=== PATIENT | female | born 1980 | race Two or more races ===

== ENCOUNTER → 2024-08-05 | Outpatient (CLI) | payer MEDICAID, SELFPAY ==
--- NOTE | 2024-08-05 11:10 | XR_ITS ---
Examination: Abdomen AP single view Technique: AP portable supine abdomen, single view Exam date and time: August 05, 2024 1135 hours INDICATIONS: Abdominal pain beginning one month ago FINDINGS: Large amounts of stool throughout the colon No renal or ureteral calculi Surgical clips upper abdomen on the right IMPRESSION: No renal or ureteral calculi
== END | disposition home or self-care (01) ==
PROVIDERS: PCP Physician Assistant; Referring Provider Surgery; Visit Provider Surgery
DX: N39.0 Urinary tract infection, site not specified (principal)
CPT/HCPCS: 74018

== ENCOUNTER → 2024-09-15 | Outpatient (CLI) | payer MEDICAID, SELFPAY ==
--- NOTE | 2024-09-15 07:15 | XR_ITS ---
Examination: Retroperitoneal ultrasound, complete Technique: Multiple high resolution grayscale images of the retroperitoneum obtained, including kidneys and bladder. Exam date and time:September 15, 2024 0751 hours INDICATIONS: Abdominal pain urinary tract infections beginning one month ago FINDINGS: Right kidney 10.4 x 6.9 x 6.7 cm renal cortex 1.5 cm Left kidney 10.5 x 6.0 x 5.1 cm cortex 2.1 cm Probable cyst in the lower pole left kidney 27 mm Mild bilateral renal parenchymal scar formation No bladder mass or bladder calculi Bladder prevoid volume 46 cc IMPRESSION: Mild bilateral renal parenchymal scar formation Recommend CT scan abdomen pelvis post intravenous contrast follow-up to differentiate lower pole left renal cyst versus dilated lower pole left renal calyces
--- NOTE | 2024-09-15 07:45 | XR_ITS ---
Examination: Breast ultrasound, unilateral, left complete Date and time of exam: September 15, 2024 0805 hours INDICATIONS: Mammogram January 27, 2024 10 mm focal asymmetry upper outer left breast Technique: Real-time pretty scale ultrasonographic imaging performed left breast including all 4 quadrants as well as nipple retroareolar and axillary region. Findings: 1:00 cyst 5 x 5 mm 9:00 cyst 4 x 3 mm No solid nodules Multiple enlarged left axillary lymph nodes IMPRESSION: BI-RADS Category 3: Probably benign findings Recommend 1 additional 6 month left breast sonogram follow-up to document stability of multiple enlarged left axillary lymph nodes
== END | disposition home or self-care (01) ==
LOC: CDIM 07:21
PROVIDERS: PCP Physician Assistant; Referring Provider Surgery; Visit Provider Surgery
DX: R91.8 Other nonspecific abnormal finding of lung field (principal); R59.0 Localized enlarged lymph nodes
CPT/HCPCS: 76641; 76770

== ENCOUNTER → 2024-09-17 | Outpatient (CLI) | payer MEDICAID, SELFPAY ==
--- NOTE | 2024-09-17 14:15 | XR_ITS ---
Examination: Diagnostic digital mammography, unilateral, left Computer aided detection 3-D breast Tomosynthesis, unilateral Date and time of exam: September 17, 2024 1456 hours INDICATIONS: Mammogram January 27, 2024 10 mm focal asymmetry upper outer left breast Technique: Nonmagnified MLO, CC views of the left breast have been obtained, reconstructed from 3-D Tomosynthesis images. R2 computer aided detection program utilized for evaluation of suspicious masses and/or abnormal calcifications. 3-D Tomosynthesis images obtained. Findings: The breast is heterogeneously dense, which may obscure small masses No suspicious nodule depicted Impression: BI-RADS category 2: Benign findings Recommend 6 month bilateral mammography follow-up
== END | disposition home or self-care (01) ==
LOC: CDIM 14:45
PROVIDERS: Referring Provider Physician Assistant; Visit Provider Physician Assistant
DX: R92.322 Mammographic fibroglandular density, left breast (principal)
CPT/HCPCS: 77061; 77065; G0279

== ENCOUNTER 2024-10-13 08:38 | Emergency (ER) | payer MEDICAID, SELFPAY ==
--- NOTE | 2024-10-13 08:52 | XR_ITS ---
Examination: CT abdomen and pelvis without contrast. Coronal 3-D reconstructions. Sagittal 2-D reconstructions. Date and time of exam:October 13, 2024 1021 hours INDICATIONS: Bilateral flank pain beginning 4 days ago CTDI: vol (mGy): 10.3 DLP: (mGycm): 551 Technique: Axial images of the abdomen have been obtained, 3 mm slice thickness Intravenous contrast material has not been administered. Low dose protocols were performed. One or more of the following dose reduction techniques were used; automated exposure control, adjustment of the mA and/or KV according to patient size, use of iterative reconstruction technique. Findings: No focal liver or splenic lesions Absent gallbladder No peripancreatic edema No adrenal mass 27 mm left renal cyst 2 mm calculus lower pole left kidney coronal image 99 No hydronephrosis or ureteral calculi Aorta normal size No pericecal inflammatory change No bowel obstruction No bladder mass or bladder calculi The osseous structures are intact IMPRESSION: 2 mm nonobstructing lower pole left renal calculus
--- NOTE | 2024-10-13 08:53 | PD.EDBACK ---
ED Back Injury Pain RME/HPI General Chief Complaint: Back Pain/Injury Stated Complaint: BILATERAL LOWER BACK/KIDNEY AREA X 4 DAYS Time Seen by Provider: 10/13/24 08:41 Source: patient Arrival date/time: 10/13/24 08:38 44-year-old female with no known medical history presents to the emergency room with a chief complaint of bilateral flank pain x 4 days. Patient is also complaining of burning with urination. Mode of arrival: ambulatory Limitations: no limitations Related Data Home Medications ?Medication ?Instructions ?Recorded ?Confirmed omeprazole 40 mg capsule,delayed 40 mg PO QDAY 05/14/21 05/20/22 release Previous Rx's ?Medication ?Instructions ?Recorded meloxicam 7.5 mg tablet 7.5 mg PO QDAY #10 tabs 10/22/21 hydrocortisone acetate 25 mg 25 mg SC BID #12 ea 11/09/21 rectal suppository (Hemmorex-HC) metoclopramide HCl 10 mg tablet 10 mg PO Q6H PRN nausea and 11/09/21 (Reglan) vomiting #20 tabs meclizine 25 mg tablet 25 mg PO BID PRN dizziness #20 tabs 12/05/22 rizatriptan 10 mg disintegrating 10 mg PO Q2H PRN migraine headache 02/22/23 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) #20 tabs famotidine 20 mg tablet 20 mg PO QDAY #30 tabs 07/06/23 cyclobenzaprine 10 mg tablet 10 mg PO TID PRN muscle spasm #30 05/15/24 tabs ibuprofen 800 mg tablet 800 mg PO TID PRN pain #30 tabs 05/15/24 meloxicam 15 mg tablet 15 mg PO QDAY #14 tabs 10/13/24 Allergies Allergy/AdvReac Type Severity Reaction Status Date / Time No Known Allergies Allergy Verified 10/13/24 08:40 Review of Systems Review of Systems Systems Reviewed: All systems reviewed, normal except as documented Constitutional Constitutional: Reports system reviewed and no additional complaints, except as documented, Denies fatigue, Denies fever(s), Denies headache(s) and Denies weakness Eyes Eyes: Reports system reviewed and no additional complaints, except as documented, Denies blurry vision and Denies change in vision ENT Ears, Nose, Mouth, and Throat: Reports system reviewed and no additional complaints, except as documented, Denies otalgia, Denies headache(s), Denies nasal congestion, Denies throat swelling and Denies vertigo Cardiovascular Cardiovascular: Reports system reviewed and no additional complaints, except as documented, Denies chest pain, Denies dyspnea and Denies dyspnea on exertion Respiratory Respiratory: Reports system reviewed and no additional complaints, except as documented, Denies chest congestion, Denies cough, Denies dyspnea, Denies dyspnea on exertion and Denies wheezing Gastrointestinal Gastrointestinal: Reports system reviewed and no additional complaints, except as documented, Denies abdominal pain, Denies cramping, Denies nausea and Denies vomiting Genitourinary Genitourinary: Reports system reviewed and no additional complaints, except as documented Musculoskeletal Musculoskeletal: Reports system reviewed and no additional complaints, except as documented and Reports back pain Integumentary/Breasts Skin/Breast: Reports system reviewed and no additional complaints, except as documented and Denies wounds Neurologic Neurologic: Reports system reviewed and no additional complaints, except as documented, Denies confusion, Denies headache(s), Denies lack of coordination, Denies vertigo and Denies weakness Psychiatric Psychiatric: Reports system reviewed and no additional complaints, except as documented, Denies anxiety, Denies confusion, Denies depression, Denies paranoia, Denies suicidal ideation and Denies tactile hallucinations Endocrine Endocrine: Reports system reviewed and no additional complaints, except as documented and Denies fatigue Hematologic/Lymphatic Hematologic/Lymphatic: Reports system reviewed and no additional complaints, except as documented and Denies lymphadenopathy Allergic/Immunologic Allergic/Immunologic: Reports system reviewed and no additional complaints, except as documented, Denies throat swelling, Denies urticaria and Denies wheezing ED Exam General Limitations: Present no limitations General appearance: Present alert and in no apparent distress Head Head exam: Present atraumatic Eye Eye exam: Present normal appearance, PERRL and EOMI ENT ENT exam: Present normal exam, normal oropharynx and mucous membranes moist Neck Neck exam: Present normal inspection, full ROM and trachea midline Chest Chest inspection: Present normal inspection and symmetric chest wall rise Respiratory Respiratory exam: Present normal lung sounds bilaterally Cardiovascular Cardiovascular exam: Present regular rate, normal rhythm and normal heart sounds Abdominal Exam Abdominal exam: Present soft, tenderness and normal bowel sounds Abdominal tenderness: Present RLQ, LLQ and mild Extremities Exam Extremities exam: Present normal inspection and full ROM Back Exam Back exam: Present normal inspection, full ROM, CVA tenderness (R) and CVA tenderness (L) Neurological Exam Neurological exam: Present alert, oriented X3 and CN II-XII intact Psychiatric Psychiatric exam: Present normal affect and normal mood Skin Skin exam: Present warm, dry, intact and normal color Course Quality Measures none Orders Category Date Time Status CT abdomen pelvis wo con Stat Exams 10/13/24 08:52 Completed CBC Stat Lab 10/13/24 09:40 Completed CMP [Comprehensive Metabolic Panel] Stat Lab 10/13/24 09:40 Completed HCG Qualitative,Urine Stat Lab 10/13/24 09:16 Completed Lipase Stat Lab 10/13/24 09:40 Completed UA [Urinalysis] Stat Lab 10/13/24 09:16 Completed Urine Culture Stat Lab 10/13/24 09:16 Received Ketorolac Inj [Toradol Inj] Med 10/13/24 10:09 Discontinued 30 mg IM X1 ONE Vital Signs Vital signs: Vital Signs Temperature 98.4 F 10/13/24 08:57 Pulse Rate 77 10/13/24 08:57 Respiratory Rate 18 10/13/24 08:57 Blood Pressure 127/66 10/13/24 08:57 Pulse Oximetry (%) 99 10/13/24 08:57 Oxygen Delivery Method Room Air 10/13/24 08:57 O2 saturation 99% within normal limits Back Pain / Injury MDM Narrative MDM Narrative:: 44-year-old female with no known medical history presents to the emergency room with a chief complaint of bilateral flank pain x 4 days. Patient is also complaining of burning with urination. Patient is hemodynamically stable and in no apparent distress. Patient is afebrile. Physical examination shows bilateral CVA tenderness. Patient denies any dysuria or lower abdominal pain. Abdomen is soft and nontender and not distended. CT of the abdomen and pelvis was completed and found a 2 mm nonobstructing left renal calculus. Patient also has a 27 mm left renal cyst. Patient was educated to follow-up with primary care provider about her cyst and return to the emergency room for any evidence of worsening signs or symptoms. Patient data External records reviewed:: [facility] previous records Clinical information provided by:: patient Social determinants that could affect healthcare access:: none Patient has the following chronic illnesses:: No chronic illness How is presenting disease/condition affected by chronic disease/condition?: no chronic disease Evaluation data The following diagnostics were reviewed and interpreted by me:: lab results and radiology exam(s) Lab and/or radiology exams considered but not ordered:: Labs and radiology exams considered and ordered Interpretation Summary: CT abdomen and pelvis-Findings: No focal liver or splenic lesions Absent gallbladder No peripancreatic edema No adrenal mass 27 mm left renal cyst 2 mm calculus lower pole left kidney coronal image 99 No hydronephrosis or ureteral calculi Aorta normal size No pericecal inflammatory change No bowel obstruction No bladder mass or bladder calculi The osseous structures are intact IMPRESSION: 2 mm nonobstructing lower pole left renal calculus Medications / Prescriptions Medications or Prescriptions considered but not ordered:: Medication given Medication administrations:: Medication Administration History Discontinued Medications Ketorolac Tromethamine (Ketorolac Inj 60 Mg/2 Ml Vial) 30 mg IM X1 ONE Stop: 10/13/24 10:10 Last Admin: 10/13/24 10:34 Dose: 30 mg Documented By: OA Medication given Consultations Consultation(s) initiated? (list below): No Diagnosis Differential diagnosis back pain/injury: lumbar radiculopathy, sciatica, strain of lumbar region, renal colic and thoracic back pain Most likely diagnosis given after review of the tests above:: Renal colic's Admission Indicated Admission indicated?: not indicated Admission Request Was there a request for admission?: No Disposition Plan Disposition Plan: Discharge Discharge Attestation Discharge Attestation: The patient and all family members were given an opportunity to ask questions and understood the discharge instructions. Discharge instructions specifically effects, indications for sooner follow up or return to the emergency department, and the expected course of current diagnosis. Patient condition: Stable Discharge Plan Plan Patient Disposition: HOME (Self Care) Disposition Comment: Stable Prescriptions/Referrals Prescriptions/Med Rec: New meloxicam 15 mg tablet 15 mg PO QDAY Qty: 14 0RF No Action omeprazole 40 mg capsule,delayed release(DR/EC) 40 mg PO QDAY metoclopramide HCl [Reglan] 10 mg tablet 10 mg PO Q6H PRN (Reason: nausea and vomiting) Qty: 20 0RF hydrocortisone acetate [Hemmorex-HC] 25 mg suppository 25 mg SC BID Qty: 12 0RF meloxicam 7.5 mg tablet 7.5 mg PO QDAY Qty: 10 0RF meclizine 25 mg tablet 25 mg PO BID PRN (Reason: dizziness) Qty: 20 0RF rizatriptan [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] 10 mg tablet,disintegrating 10 mg PO Q2H PRN (Reason: migraine headache) Qty: 20 0RF Rx Instructions: do not exceed 3 doses per 24 hrs famotidine 20 mg tablet 20 mg PO QDAY Qty: 30 0RF ibuprofen 800 mg tablet 800 mg PO TID PRN (Reason: pain) Qty: 30 0RF cyclobenzaprine 10 mg tablet 10 mg PO TID PRN (Reason: muscle spasm) Qty: 30 0RF Referrals: Sea Morris PA-C [Primary Care Provider] - In 1 week Problem List Clinical Impression: Kidney stone, Renal cyst, left Patient/Caregiver Discharge Instructions Education Materials: ED Kidney Stone w/ Colic Additional Instructions: Por favor, consulte con [facility] en las pr?ximas 24 a 48 horas. Se realiz? albaro tomograf?a computarizada de abdomen y pelvis y se encontr? un c?lculo de 2 mm que no obstru?a el paso. Tambi?n hay un quiste renal de 27 mm en el ri??n fatimah. Por favor, consulte con [facility] y regrese a la jose de emergencias si hay evidencia de empeoramiento de los signos o s?ntomas. Print Language: Irish Stand Alone Forms: Roselyn Award Info., Patient Portal Info Letter PA/CARE INFORMATION ASSOCIATE Supervising Physician PA/CARE INFORMATION ASSOCIATE Supervising Physician: Dr. Resendez
[2024-10-13 08:57] VITALS: BP 127/66; PULSE 77; RESP 18; TEMP 36.9; O2SAT 99; BMI 31.9
[2024-10-13 09:23] LABS: Collection Type, Urine Clean Catch
[2024-10-13 09:36] LABS: HCG Qualitative,Urine Negative
[2024-10-13 09:56] LABS: Basophils % (Auto) 0 % (0-2.5); Eosinophils # (Auto) 0.1 Thou/mm3 (0.0-0.5); Eosinophils % (Auto) 2 % (0-10); Hematocrit 37.9 % (36.0-46.0); Hemoglobin 12.7 g/dL (12.0-16.0); Immature Granulocytes % (Auto) 0 % (0-0); Immature Granulocytes Auto 0.02 Thou/mm3 (0.00-0.00); Lymphocytes # (Auto) 1.8 Thou/mm3 (1.0-4.8); Lymphocytes % (Auto) 25 % (10-50); Mean Corpuscular HGB Conc 33.5 g/dl (31.0-37.0); Mean Corpuscular Hemoglobin 29.3 pg (25.0-35.0); Mean Corpuscular Volume 88 fL (80-100); Monocytes # (Auto) 0.4 Thou/mm3 (0.0-0.8); Monocytes % (Auto) 6 % (0-12); Neutrophils # (Auto) 4.8 Thou/mm3 (1.8-7.7); Neutrophils % (Auto) 66 % (37-80); Nucleated Red Blood Cell % 0 /100 WBC (0); Platelet Count 272 Thou/mm3 (140-440); RDW Standard Deviation 43.3 fL (36.4-46.3); Red Blood Count 4.33 Miln/mm3 (4.00-5.20); White Blood Count 7.3 Thou/mm3 (3.6-11.0)
[2024-10-13 09:57] LABS: Bacteria,Urine 2+; Bilirubin,Urine Negative (Negative); Blood,Urine 2+ (Negative); Clarity,Urine Clear (Clear/Hazy); Color,Urine Lt-Yellow (Lt Yel-Yel); Glucose, Urine Negative (Negative); Hyaline Casts,Urine < 1 /hpf (0-1); Ketones,Urine Negative (Negative); Leukocyte Esterase,Urine Negative (Negative); Nitrite,Urine Negative (Negative); Protein,Urine Negative (Neg - Trace); RBC,Urine 14 /hpf (0-3); Specific Gravity,Urine 1.019 (1.001-1.035); Squamous Epithelial Cell,Urine 7 /hpf (0-5); Urobilinogen,Urine Negative mg/dL (0.0-1.0); WBC,Urine 1 /hpf (0-5)
[2024-10-13 10:09] LABS: Alanine Aminotransferase 12 U/L (10-49); Albumin/Globulin Ratio 1.5 (1.2-2.2); Alkaline Phosphatase 63 U/L (46-116); Anion Gap 6 (7-16); Aspartate Amino Transferase 14 U/L (0-34); BUN/Creatinine Ratio 13 Ratio (12-20); Bilirubin,Total 0.3 mg/dL (0.3-1.2); Blood Urea Nitrogen 9 mg/dL (9-23); Calcium 8.9 mg/dL (8.3-10.6); Calcium (Corrected) 8.9 mg/dL (8.5-10.1); Carbon Dioxide 24.9 mMol/L (20.0-31.0); Chloride 108 mMol/L (98-107); Creatinine (Component) 0.7 mg/dL (0.6-1.3); Estimated Creatinine Clearance 110.1 mL/min (>60); Globulin 2.6 gm/dL (2.3-3.5); Glucose 92 mg/dL (74-106); Lipase 34 U/L (12-53); Osmolality,Calculated 276 (275-295); Potassium 4.3 mMol/L (3.4-5.1); Sodium 139 mMol/L (136-145); Total Protein 6.6 gm/dL (5.7-8.2); eGFR > 60 See Note
[2024-10-13] MEDS: KETOROLAC INJ 60 MG/2 ML VIAL 30 MG IM (10:34)
== END 2024-10-13 11:58 | disposition home or self-care (01) ==
PROVIDERS: Nurse Practitioner Family; Emergency Provider Emergency Medicine; PCP Physician Assistant
DX: N20.0 Calculus of kidney (principal); N28.1 Cyst of kidney, acquired
CPT/HCPCS: 36415; 74176; 80053; 81001; 81025; 83690; 85025; 87086; 96372; 99284; J1885

== ENCOUNTER 2024-11-18 19:00 | Emergency (ER) | payer MEDICAID, SELFPAY ==
--- NOTE | 2024-11-18 19:10 | EKG_ITS ---
[facility] Test Date: 2024-11-18 Pat Name: JEREMY JOHNSON Department: Room: - Gender: Female [employer] Technician: : 1980 Requested By: Joe López Order Number: [id number] Reading MD: Joe López Measurements Intervals [place] Rate: 77 P: 61 MA: 143 QRS: 28 QRSD: 79 T: 15 QT: 395 QTc: 449 Interpretive Statements SINUS RHYTHM MODERATE T-WAVE ABNORMALITY, CONSIDER ANTERIOR ISCHEMIA [-0.1+ mV T-WAVE IN V3/V4] Compared to ECG 07/06/2023 08:09:38 T-wave abnormality now present Possible ischemia now present /store/S0/[id number].pdf
[2024-11-18 19:47] VITALS: BP 138/86; PULSE 73; RESP 16; TEMP 36.6; O2SAT 99; BMI 30.9
--- NOTE | 2024-11-18 20:06 | EDNOTE_ITS ---
ED Anxiety RME/HPI General Chief Complaint: Chest Pain Stated Complaint: LEFT CHEST PAIN RADIATING TO LEFT HAND; DIZZY Time Seen by Provider: 11/18/24 20:03 Arrival date/time: 11/18/24 19:00 44F with history of anxiety presents to ED with 2 days of intermittent L-sided CP that radiates down arm, generalized numbness, and some dizziness. Patient denies SI/HI. Limitations: no limitations Related Data Home Medications ?Medication ?Instructions ?Recorded ?Confirmed omeprazole 40 mg capsule,delayed 40 mg PO QDAY 1 05/20/22 release Previous Rx's ?Medication ?Instructions ?Recorded meloxicam 7.5 mg tablet 7.5 mg PO QDAY #10 tabs 10/09 11/30 hydrocortisone acetate 25 mg 25 mg [place] BID #12 ea 11/09 rectal suppository (Hemmorex-HC) metoclopramide HCl 10 mg tablet 10 mg PO Q6H PRN nause a and 11/09/21 (Reglan) vomiting #20 tabs meclizine 25 mg tablet 25 mg PO BID PRN dizziness # 20 tabs 12/05/22 rizatriptan 10 mg disintegrating 10 mg PO Q2H PRN migr taylor headache 02/22/23 tablet (Maxalt-BEAM SAW OPERATOR) #20 tabs famotidine 20 mg tablet 20 mg PO QDAY #30 tabs 07/06 cyclobenzaprine 10 mg tablet 10 mg PO TID PRN muscle s pasm #30 05/15/24 tabs ibuprofen 800 mg tablet 800 mg PO TID PRN pain #30 t abs 05/15/24 meloxicam 15 mg tablet 15 mg PO QDAY #14 tabs 10/13 Allergies Allergy/AdvReac Type Severity Reaction Status Date / Time No Known Allergies Allergy Verified 11/18/24 19:03 Review of Systems Review of Systems Systems Reviewed: All systems reviewed, normal except as documented Constitutional Constitutional: Reports system reviewed and no additional complaints, except as documented, Denies fever(s) and Denies headache(s) ENT Ears, Nose, Mouth, and Throat: Denies disequilibrium, Denies headache(s) and Reports vertigo Cardiovascular Cardiovascular: Reports system reviewed and no additional complaints, except as documented, Reports as per HPI, Reports chest pain and Denies dyspnea Respiratory Respiratory: Reports system reviewed and no additional complaints, except as documented, Denies cough and Denies dyspnea Gastrointestinal Gastrointestinal: Reports system reviewed and no additional complaints, except as documented, Denies abdominal pain, Denies nausea and Denies vomiting Musculoskeletal Musculoskeletal: Reports numbness Neurologic Neurologic: Reports system reviewed and no additional complaints, except as documented, Reports as per HPI, Denies confusion, Denies disequilibrium, Denies headache(s), Reports numbness and Reports vertigo Psychiatric Psychiatric: Denies confusion Past Medical History Past Medical History NEUROLOGIC: Positive Neurological Disorders and Migraine; Negative Seizures CARDIAC: Negative Cardiac Disorders or Congestive Heart Failure RESPIRATORY: Negative Chronic Obstructive Pulmonary Disease (COPD), Asthma, Bronchitis, Pneumonia or Tuberculosis GASTROINTESTINAL: Positive Gall Bladder Disease and Gastroesophageal Reflux Disease; Negative Gastrointestinal Disorders, Hepatitis or Colorectal Cancer GENITOURINARY: Positive Kidney Stones; Negative Genitourinary Disorders or Renal Disease REPRODUCTIVE: Positive Previous Pregnancies; Negative Breast Cancer, Endometriosis, Genital Herpes, Gonorrhea, Pelvic Inflammatory Disease, Syphilis or Uterine Prolapse MUSCULOSKELETAL: Negative Musculoskeletal Disorders or Bone Cancer ENDOCRINE: Negative Endocrine Disorders, Diabetes Mellitus Type 1 or Diabetes Mellitus Type 2 HEMATOLOGIC: Negative Blood Disorders or Sickle Cell Disease OTHER HISTORY: Positive Chicken Pox; Negative Hospitalization, Autoimmune Disease, Down Syndrome, Developmental Delay, Shingles, Falls, Chemotherapy, MRSA, VRSA, Vancomycin-Resistant Enterococci, Human Immunodeficiency Virus (HIV), Measles, Mumps, Rubella (Azeri Measles), Pertussis, Clostridium Difficile, Breast Cancer, Cervical Cancer, Colorectal Cancer, Lung Cancer or Ovarian Cancer Family History FAMILY HISTORY: Negative Family Psychiatric Problems, Family Respiratory Disorders, Family Cardiac Disorders, Family Gastrointestinal Problems, Family Cancer, Family Surgery or Family Anesthesia Reaction Surgical History SURGICAL: Positive Abdominal Surgery; Negative Endocrine Surgery, Ear Surgery, Nephrectomy or Section Social History SMOKING STATUS: Never smoker SUBSTANCE USE: does not use ED Exam General Limitations: Present no limitations General appearance: Present alert and in no apparent distress Head Head exam: Present atraumatic Eye Eye exam: Present normal appearance, PERRL and EOMI ENT ENT exam: Present normal exam, normal oropharynx and mucous membranes moist Neck Neck exam: Present normal inspection, full ROM and trachea midline Chest Chest inspection: Present normal inspection and symmetric chest wall rise Respiratory Respiratory exam: Present normal lung sounds bilaterally Cardiovascular Cardiovascular exam: Present regular rate, normal rhythm and normal heart sounds Abdominal Exam Abdominal exam: Present soft and normal bowel sounds Extremities Exam Extremities exam: Present normal inspection and full ROM Back Exam Back exam: Present normal inspection and full ROM Neurological Exam Neurological exam: Present alert, oriented X3 and CN II-XII intact Psychiatric Psychiatric exam: Present normal affect and normal mood Skin Skin exam: Present warm, dry, intact and normal color Course Quality Measures none Orders Category Date Time Status EKG (ED ONLY) *Do not use* NOW Care 11/18/24 19:10 Completed EKG (ED Only) Stat Exams 11/18/24 19:10 Draft Diazepam [Valium] Med 11/18/24 20:03 Pending 10 mg PO X1 ONE Vital Signs Vital signs: Vital Signs Temperature 97.9 F 11/18/24 19:47 Pulse Rate 73 11/18/24 19:47 Respiratory Rate 16 11/18/24 19:47 Blood Pressure 138/86 H 11/18/24 19:47 Pulse Oximetry (%) 99 11/18/24 19:47 Oxygen Delivery Method Room Air 11/18/24 19:47 Anxiety MDM Narrative MDM Narrative: 44F with history of anxiety presents to ED with 2 days of intermittent L-sided CP that radiates down arm, generalized numbness, and some dizziness. Patient denies SI/HI. Physical exam reveals clear lungs. RRR. Normal WOB. Patient is afebrile, alert, but mildly anxious. EKG is NSR. Valium improved symptoms. Patient data External records reviewed:: [facility] previous records Clinical information provided by:: patient Social determinants that could affect healthcare access:: mental health Patient has the following chronic illnesses:: anxiety How is presenting disease/condition affected by chronic disease/condition?: exacerbated by Evaluation data The following diagnostics were reviewed and interpreted by me:: EKG tracing(s) Lab and/or radiology exams considered but not ordered:: ordered Interpretation Summary: above Medications / Prescriptions Medications or Prescriptions considered but not ordered:: ordered Medication administrations:: Medication Administration History Diazepam (Diazepam 5 Mg Tablet) 10 mg PO X1 ONE Stop: 11/18/24 20:04 Consultations Consultation(s) initiated? (list below): No Diagnosis Differential diagnosis anxiety: hyperventilation, panic disorder and acute anxiety Most likely diagnosis given after review of the tests above:: anxiety Admission Indicated Admission indicated?: not indicated Admission Request Was there a request for admission?: No Disposition Plan Disposition Plan: Discharge Discharge Attestation Discharge Attestation: The patient and all family members were given an opportunity to ask questions and understood the discharge instructions. Discharge instructions specifically effects, indications for sooner follow up or return to the emergency department, and the expected course of current diagnosis. Patient condition: Stable Discharge Plan Plan Patient Disposition: HOME (Self Care) Disposition Comment: STable Prescriptions/Referrals Prescriptions/Med Rec: No Action omeprazole 40 mg capsule,delayed release(DR/EC) 40 mg PO QDAY metoclopramide HCl [Reglan] 10 mg tablet 10 mg PO Q6H PRN (Reason: nausea and vomiting) Qty: 20 0RF hydrocortisone acetate [Hemmorex-HC] 25 mg suppository 25 mg FL BID Qty: 12 0RF meloxicam 7.5 mg tablet 7.5 mg PO QDAY Qty: 10 0RF meclizine 25 mg tablet 25 mg PO BID PRN (Reason: dizziness) Qty: 20 0RF rizatriptan [Maxalt-BEAM SAW OPERATOR] 10 mg tablet,disintegrating 10 mg PO Q2H PRN (Reason: migraine headache) Qty: 20 0RF Rx Instructions: do not exceed 3 doses per 24 hrs famotidine 20 mg tablet 20 mg PO QDAY Qty: 30 0RF ibuprofen 800 mg tablet 800 mg PO TID PRN (Reason: pain) Qty: 30 0RF cyclobenzaprine 10 mg tablet 10 mg PO TID PRN (Reason: muscle spasm) Qty: 30 0RF meloxicam 15 mg tablet 15 mg PO QDAY Qty: 14 0RF Referrals: Sea Morris PA-C [Primary Care Provider] - In 1 week Problem List Clinical Impression: Anxiety Patient/Caregiver Discharge Instructions Education Materials: Your Body's Response to Anxiety Additional Instructions: Please follow-up with PCP within 24-48 hours and return immediately if symptoms worsen. Print Language: [place] Rican Stand Alone Forms: Patient Portal Info Letter JENNIFER/ASTRID Supervising Physician JENNIFER/ASTRID Supervising Physician: Dr. Cummins
[2024-11-18] MEDS: DIAZEPAM 5 MG TABLET 10 MG PO (21:00)
== END 2024-11-18 21:55 | disposition home or self-care (01) ==
PROVIDERS: Emergency Provider Emergency Medicine; PCP Physician Assistant
DX: F41.9 Anxiety disorder, unspecified (principal); R07.9 Chest pain, unspecified
CPT/HCPCS: 93005; 99283; A9270

== ENCOUNTER 2024-12-12 17:48 | Emergency (ER) | payer MEDICAID, SELFPAY ==
[2024-12-12 18:38] VITALS: BP 147/91; PULSE 75; RESP 18; TEMP 36.6; O2SAT 99
[2024-12-12 18:41] VITALS: BMI 30.9
[2024-12-12 18:58] VITALS: BP 139/86; PULSE 75; RESP 19; TEMP 36.8; O2SAT 99
--- NOTE | 2024-12-12 19:15 | PD.EDRME ---
Rapid Medical Screening Exam RME Arrival date/time: 12/12/24 17:48 Chief Complaint: Headache Time Seen by Provider: 12/12/24 18:13 Vital signs: Vital Signs Temperature 97.8 F 12/12/24 18:38 Pulse Rate 75 12/12/24 18:38 Respiratory Rate 18 12/12/24 18:38 Blood Pressure 147/91 H 12/12/24 18:38 Pulse Oximetry (%) 99 12/12/24 18:38 Oxygen Delivery Method Room Air 12/12/24 18:38 Vital signs reviewed by provider: Yes RME Narrative: 44-year-old female presents to the ED with complaint of a 10/10 headache, onset upon awakening. She has a history of migraines but they are normally a 6/10. She has no associated nausea or vomiting but she does feel dizzy and has blurry vision. She denies any numbness, tingling, weakness to her hands and feet. She takes migraine medication at home, unknown name. CT ordered and pending due to left facial droop/neurological deficits. Discussed case with Dr. Crockett who agrees with above plan. Meds ordered.
--- NOTE | 2024-12-12 19:18 | XR_ITS ---
Examination: CT brain head without contrast. 2-D sagittal coronal reconstructions Date and time of exam:December 12, [id number] comparison 04/26/2023 INDICATIONS: Facial droop and headache today CTDI: vol (mGy):48.1 DLP: (mGycm): There is 61 Technique: Multiple CT axial sections of the brain have been obtained, 5 mm slice thickness. Contrast has not been administered. 2-D sagittal, coronal reconstructions have been obtained Low dose protocols were performed. One or more of the following dose reduction techniques were used; automated exposure control, adjustment of the mA and/or KV according to patient size, use of iterative reconstruction technique. Findings: No significant ventricular enlargement. Intra-axial or extra-axial hemorrhage density is not seen. No mass effect or midline shift Basal cisterns are not remarkable. Fourth ventricle is midline. Cranial vault intact. Impression: Negative for acute hemorrhage, mass effect or midline shift As clinically warranted, brain MRI follow-up would best assess for demyelinating disease, acute ischemic change
[2024-12-12] MEDS: METOCLOPRAMIDE 5 MG TABLET 10 MG PO (20:03)
[2024-12-12] MEDS: ACETAMINOPHEN 500 MG TABLET 1000 MG PO (20:03)
[2024-12-12] MEDS: DiphenhydrAMINE ELIX 25 MG/10 ML UDC 12.5 MG PO (20:03)
--- NOTE | 2024-12-12 21:02 | EDNOTE_ITS ---
ED Headache RME/HPI General Chief Complaint: Headache Stated Complaint: HEADACHE RADIATES TO NECK Time Seen by Provider: 12/12/24 18:13 Arrival date/time: 12/12/24 17:48 RME / HPI RME / HPI Narrative: 44-year-old female presents to the ED with complaint of a 10/10 headache, onset upon awakening. She has a history of migraines but they are normally a 6/10. She has no associated nausea or vomiting but she does feel dizzy and has blurry vision. She denies any numbness, tingling, weakness to her hands and feet. She takes migraine medication at home, unknown name. CT ordered and pending due to left facial droop/neurological deficits. Discussed case with Dr. Crockett who agrees with above plan. Meds ordered. MD Complaint: headache Onset (ago): day(s) (2) Onset description: gradual Location: diffuse Severity: severe Severity scale (1-10): 10 Quality: throbbing Relieving factors: nothing Context: occurred at rest Related Data Home Medications ?Medication ?Instructions ?Recorded ?Confirmed omeprazole 40 mg capsule,delayed 40 mg PO QDAY 1 05/20/22 release Previous Rx's ?Medication ?Instructions ?Recorded meloxicam 7.5 mg tablet 7.5 mg PO QDAY #10 tabs 10/09 11/30 hydrocortisone acetate 25 mg 25 mg [place] BID #12 ea 11/09 rectal suppository (Hemmorex-HC) metoclopramide HCl 10 mg tablet 10 mg PO Q6H PRN nause a and 11/09/21 (Reglan) vomiting #20 tabs meclizine 25 mg tablet 25 mg PO BID PRN dizziness # 20 tabs 12/05/22 rizatriptan 10 mg disintegrating 10 mg PO Q2H PRN migr taylor headache 02/22/23 tablet (Maxalt-MANAGING CONSULTANT CLINICAL PROFESSOR) #20 tabs famotidine 20 mg tablet 20 mg PO QDAY #30 tabs 07/06 cyclobenzaprine 10 mg tablet 10 mg PO TID PRN muscle s pasm #30 05/15/24 tabs ibuprofen 800 mg tablet 800 mg PO TID PRN pain #30 t abs 05/15/24 meloxicam 15 mg tablet 15 mg PO QDAY #14 tabs 10/13 meloxicam 15 mg tablet 15 mg PO QDAY Pain #10 tabs 12/12/24 Allergies Allergy/AdvReac Type Severity Reaction Status Date / Time No Known Allergies Allergy Verified 11/18/24 19:03 Review of Systems Review of Systems Systems Reviewed: All systems reviewed, normal except as documented Narrative Review of Systems: Denies recent illness with Fever, chills, cough, upper respiratory symptoms, nausea, vomiting, diarrhea, or abdominal pain. ED Exam General General appearance: Present alert Head Head exam: Present atraumatic, normocephalic and normal inspection Eye Eye exam: Present normal appearance, PERRL and EOMI; Absent scleral icterus, conjunctival injection or nystagmus ENT ENT exam: Present normal exam, normal oropharynx, mucous membranes moist, TM's normal bilaterally and normal external ear exam Neck Neck exam: Present normal inspection and full ROM; Absent tenderness or meningismus Chest Chest inspection: Present normal inspection Respiratory Respiratory exam: Present normal lung sounds bilaterally; Absent respiratory distress Cardiovascular Cardiovascular exam: Present regular rate and normal rhythm Abdominal Exam Abdominal exam: Present soft; Absent distention or tenderness Extremities Exam Extremities exam: Present normal inspection and full ROM Back Exam Back exam: Present normal inspection and full ROM; Absent tenderness, CVA tenderness (R) or CVA tenderness (L) Neurological Exam Neurological exam: Present alert, oriented X3, CN II-XII intact (Left-sided facial droop noted), motor sensory deficit and reflexes normal Psychiatric Psychiatric exam: Present normal affect and normal mood Skin Skin exam: Present warm, dry, intact and normal color Course Orders Category Date Time Status CT head/brain wo con Stat Exams 12/12/24 19:18 Completed Acetaminophen Tab [Tylenol ES Tab] Med 12/12/24 19:18 Discontinued 1,000 mg PO X1 ONE DiphenhydrAMINE [Benadryl] Med 12/12/24 19:18 Discontinued 12.5 mg PO X1 ONE Metoclopramide [Reglan] Med 12/12/24 19:18 Discontinued 10 mg PO X1 ONE Reevaluation(s) Reevaluation #1: Reevaluation after CT completed and medications given. Left-sided facial droop is now resolved. No further neurological deficits present. Vital Signs Vital signs: Vital Signs Temperature 97.8 F 12/12/24 18:38 Pulse Rate 75 12/12/24 18:38 Respiratory Rate 18 12/12/24 18:38 Blood Pressure 147/91 H 12/12/24 18:38 Pulse Oximetry (%) 99 12/12/24 18:38 Oxygen Delivery Method Room Air 12/12/24 18:38 Headache Evaluation data The following diagnostics were reviewed and interpreted by me:: radiology exam(s) Interpretation Summary: BRAIN/HEAD CT: Findings: No significant ventricular enlargement. Intra-axial or extra-axial hemorrhage density is not seen. No mass effect or midline shift Basal cisterns are not remarkable. Fourth ventricle is midline. Cranial vault intact. Impression: Negative for acute hemorrhage, mass effect or midline shift Medications / Prescriptions Medication administrations:: Medication Administration History Discontinued Medications Acetaminophen (Acetaminophen 500 Mg Tablet) 1,000 mg PO X1 ONE Stop: 12/12/24 19:19 Last Admin: 12/12/24 20:03 Dose: 1,000 mg Documented By: LUIS Diphenhydramine HCl (Diphenhydramine Elix 25 Mg/10 Ml Udc) 12.5 mg PO X1 ONE Stop: 12/12/24 19:19 Last Admin: 12/12/24 20:03 Dose: 12.5 mg Documented By: LUIS Metoclopramide HCl (Metoclopramide 5 Mg Tablet) 10 mg PO X1 ONE Stop: 12/12/24 19:19 Last Admin: 12/12/24 20:03 Dose: 10 mg Documented By: LUIS Tylenol 1 g, diphenhydramine 12.5 mg, and Reglan 10 mg p.o. given. Discharge Plan Plan Patient Disposition: HOME (Self Care) Discharge Disposition comment: Stable and improved Prescriptions/Referrals Prescriptions/Med Rec: New meloxicam 15 mg tablet 15 mg PO QDAY Qty: 10 0RF Rx Instructions: Do not take with ibuprofen/Motrin or Naprosyn/Aleve. No Action omeprazole 40 mg capsule,delayed release(DR/EC) 40 mg PO QDAY metoclopramide HCl [Reglan] 10 mg tablet 10 mg PO Q6H PRN (Reason: nausea and vomiting) Qty: 20 0RF hydrocortisone acetate [Hemmorex-HC] 25 mg suppository 25 mg GA BID Qty: 12 0RF meloxicam 7.5 mg tablet 7.5 mg PO QDAY Qty: 10 0RF meclizine 25 mg tablet 25 mg PO BID PRN (Reason: dizziness) Qty: 20 0RF rizatriptan [Maxalt-MANAGING CONSULTANT CLINICAL PROFESSOR] 10 mg tablet,disintegrating 10 mg PO Q2H PRN (Reason: migraine headache) Qty: 20 0RF Rx Instructions: do not exceed 3 doses per 24 hrs famotidine 20 mg tablet 20 mg PO QDAY Qty: 30 0RF ibuprofen 800 mg tablet 800 mg PO TID PRN (Reason: pain) Qty: 30 0RF cyclobenzaprine 10 mg tablet 10 mg PO TID PRN (Reason: muscle spasm) Qty: 30 0RF meloxicam 15 mg tablet 15 mg PO QDAY Qty: 14 0RF Referrals: No Primary/Family,Physician [Primary Care Provider] - In 1 week Problem List Clinical Impression: Migraine variant with headache Patient/Caregiver Discharge Instructions Education Materials: ED Headache, Migraine, Classic Additional Instructions: Follow-up with your primary care physician in 24 to 48 hours. Return to the ED for any new or worsening symptoms. Print Language: Belizean Stand Alone Forms: Roselyn Award Info., Patient Portal Info Letter PA/CURTAIN INSPECTOR Supervising Physician PA/CURTAIN INSPECTOR Supervising Physician: Dr. Crockett
== END 2024-12-12 21:37 | disposition home or self-care (01) ==
PROVIDERS: Emergency Provider Emergency Medicine
DX: G43.909 Migraine, unspecified, not intractable, without status migrainosus (principal)
CPT/HCPCS: 70450; 99284; A9270

== ENCOUNTER → 2025-04-07 | Outpatient (CLI) | payer MEDICAID, SELFPAY ==
--- NOTE | 2025-04-07 11:30 | XR_ITS ---
Examination: Screening digital mammography, bilateral Computer aided detection 3-D breast Tomosynthesis, bilateral Date and time of exam: 04/07/2025, 11:41 AM Comparisons: April 2022 through January 2024 Indications: Screening Technique: Nonmagnified MLO, CC views of the breasts to been obtained, reconstructed from 3-D Tomosynthesis images. R2 computer aided detection program utilized for evaluation of suspicious masses and/or abnormal calcifications. 3-D Tomosynthesis images obtained. Technologist: Findings: The breasts are heterogeneously dense, which may obscure small masses. No evidence of abnormal masses or suspicious calcifications. Impression: BI-RADS category 1: Negative findings (within normal) Recommend 1 year follow-up mammogram
== END | disposition home or self-care (01) ==
LOC: CDIM 11:24
PROVIDERS: PCP Physician Assistant Medical; Referring Provider Physician Assistant Medical; Visit Provider Physician Assistant Medical
DX: Z12.31 Encounter for screening mammogram for malignant neoplasm of breast (principal); R92.313 Mammographic fatty tissue density, bilateral breasts
CPT/HCPCS: 77063; 77067

== ENCOUNTER 2025-05-13 18:32 | Emergency (ER) | payer MEDICAID, SELFPAY ==
[2025-05-13 18:34] VITALS: BMI 30.9
--- NOTE | 2025-05-13 18:37 | EKG_ITS ---
[facility] Test Date: 2025-05-13 Pat Name: JEREMY JOHNSON Department: Room: - Gender: Female Groundskeeper Porter: : 1980 Requested By: ED Temporary Provider Order Number: [id number] Reading MD: ED Temporary Provider Measurements Intervals [place] Rate: 69 P: 22 VT: 142 QRS: 14 QRSD: 80 T: 14 QT: 391 QTc: 421 Interpretive Statements SINUS RHYTHM POSSIBLE RIGHT VENTRICULAR CONDUCTION DELAY [RSR (QR) IN V1/V2] Compared to ECG 11/18/2024 19:46:04 T-wave abnormality no longer present Possible ischemia no longer present /store/S0/[id number]
--- NOTE | 2025-05-13 19:09 | EDNOTE_ITS ---
ED Headache RME/HPI General Chief Complaint: Headache Stated Complaint: HEADACHE, CHEST PAIN, GENERALIZED WEAKNESS Time Seen by Provider: 05/13/25 19:13 Arrival date/time: 05/13/25 18:32 RME / HPI RME / HPI Narrative: See MDM for Dr. Resendez's HPI documentation. 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) #20 tabs famotidine 20 mg tablet 20 mg PO QDAY #30 tabs 07/06 cyclobenzaprine 10 mg tablet 10 mg PO TID PRN muscle s pasm #30 05/15/24 tabs ibuprofen 800 mg tablet 800 mg PO TID PRN pain #30 t abs 05/15/24 meloxicam 15 mg tablet 15 mg PO QDAY #14 tabs 10/13 meloxicam 15 mg tablet 15 mg PO QDAY Pain #10 tabs 12/12/24 acetaminophen 300 mg-codeine 30 mg 2 tab PO Q8H PRN pa in #20 tabs 05/13/25 tablet Allergies Allergy/AdvReac Type Severity Reaction Status Date / Time No Known Allergies Allergy Verified 05/13/25 18:34 Review of Systems Review of Systems Systems Reviewed: All systems reviewed, normal except as documented Past Medical History Past Medical History NEUROLOGIC: Positive Neurological Disorders and Migraine; Negative Seizures CARDIAC: Negative Cardiac Disorders or Congestive Heart Failure RESPIRATORY: Negative Chronic Obstructive Pulmonary Disease (COPD), Asthma, Bronchitis, Pneumonia or Tuberculosis GASTROINTESTINAL: Positive Gall Bladder Disease and Gastroesophageal Reflux Disease; Negative Gastrointestinal Disorders, Hepatitis or Colorectal Cancer GENITOURINARY: Positive Kidney Stones; Negative Genitourinary Disorders or Renal Disease REPRODUCTIVE: Positive Previous Pregnancies; Negative Breast Cancer, Endometriosis, Genital Herpes, Gonorrhea, Pelvic Inflammatory Disease, Syphilis or Uterine Prolapse MUSCULOSKELETAL: Negative Musculoskeletal Disorders or Bone Cancer ENDOCRINE: Negative Endocrine Disorders, Diabetes Mellitus Type 1 or Diabetes Mellitus Type 2 HEMATOLOGIC: Negative Blood Disorders or Sickle Cell Disease OTHER HISTORY: Positive Chicken Pox; Negative Hospitalization, Autoimmune Disease, Down Syndrome, Developmental Delay, Shingles, Falls, Chemotherapy, MRSA, VRSA, Vancomycin-Resistant Enterococci, Human Immunodeficiency Virus (HIV), Measles, Mumps, Rubella (Bengali Measles), Pertussis, Clostridium Difficile, Breast Cancer, Cervical Cancer, Colorectal Cancer, Lung Cancer or Ovarian Cancer Family History FAMILY HISTORY: Negative Family Psychiatric Problems, Family Respiratory Disorders, Family Cardiac Disorders, Family Gastrointestinal Problems, Family Cancer, Family Surgery or Family Anesthesia Reaction Surgical History SURGICAL: Positive Abdominal Surgery; Negative Endocrine Surgery, Ear Surgery, Nephrectomy or Section Social History SMOKING STATUS: Never smoker SUBSTANCE USE: does not use ED Exam Narrative Physical exam: See MDM for Dr. Resendez's physical exam documentation. Course Course Course Narrative: CXR is ordered for determining the etiology of chest pain. Quality Measures none Orders Category Date Time Status Bedside COVID-19 Antigen Test NOW Care 05/13/25 19:14 Completed Bedside Influenza A&B Antigen Test NOW Care 05/13/25 19:14 Completed EKG (ED ONLY) *Do not use* NOW Care 05/13/25 18:[address] head/brain wo con Stat Exams 05/13/25 20:38 Completed EKG (ED Only) Stat Exams 05/13/25 18:37 Draft XR chest 1V portable Stat Exams 05/13/25 19:14 Completed BMP [Basic Metabolic Panel] Stat Lab 05/13/25 19:31 Completed CBC Stat Lab 05/13/25 19:31 Completed Magnesium Stat Lab 05/13/25 19:31 Completed TSH [Thyroid Stimulating Hormone] Stat Lab 05/13/25 19:31 Completed Troponin I Stat Lab 05/13/25 19:31 Completed ACETAMINOPHEN w/COD 300-30 [Tylenol w/Cod #3] Med 05/13/25 19:14 Discontinued 2 tab PO X1 ONE Vital Signs Vital signs: Vital Signs Temperature 98.2 F 05/13/25 20:02 Pulse Rate 62 05/13/25 20:02 Respiratory Rate 16 05/13/25 20:02 Blood Pressure 137/80 H 05/13/25 20:02 Pulse Oximetry (%) 100 05/13/25 20:02 Oxygen Delivery Method Room Air 05/13/25 20:02 Headache MDM Narrative MDM Narrative:: This section includes all my notes and documentations, including HPI, PE, and ED course. Sven Resendez MD HPI: 45yo female here with headache on top of her head and left sided chest pain for the last 24 hours. No vomiting or shortness of breath. No other complaints reported. ROS: All negative except as documented in HPI. Physical Exam: General: Alert and oriented. No acute distress when remaining still. Eyes: Conjunctivae and lids clear. PERRL. EOMI. ENT: No nasal congestion. Neck: Supple. Heart: RRR. Lungs: No respiratory distress. Good air movement. No rhonchi, wheezing, rales. Chest: No tenderness. Abdomen: Soft and nontender. Normal bowel sounds. No distension. No rebound or guarding. Back: No CVA tenderness. Skin: Warm and dry. Neuro: Alert and oriented X 3. Cranial nerves II to XII grossly normal. No peripheral motor deficits. I reviewed all diagnostic test results. My interpretation of the EKG is sinus rhythm with nonspecific ST-T changes. My interpretation of the chest x-ray is NAD. My review of the CT head report is NAD. Blood tests are unremarkable. COVID/Influenza negative. At this point, diagnoses include: Headache of unclear etiology Chest pain of unclear etiology Treatment here included: Tylenol with Codeine X 2 Significant improvement noted. Recommended more outpatient management. Based on my best medical judgment, made decision no further evaluation or treatment indicated at this time. Patient understands and agrees to the discharge instructions customized and printed, see below. Discharge Instructions from Dr. Resendez printed for you: 1. After extensive evaluation, the cause of your headache and chest pain was not determined. But there is no immediately life-threatening condition. Such as stroke or brain tumor or heart attack. 2. Tylenol with codeine for severe pain. 3. See a private doctor outside the ER on 05/16/2025 for recheck. Ask for help finding the cause of your headache and chest pain. To make sure there is no serious underlying heart condition, ask to help you get more tests for your heart that cannot be done here in the ER. Such as Holter Monitor (cardiac monitoring at home from a day to even a month), heart stress test (on treadmill or with medication), echocardiogram (imaging of your heart structures), heart catherization (checking for blockages in your heart arteries), and a referral to see a Sql Server Consultant. Ask to consider MRI imaging of the brain and referral to see neurologist. 4. Seek immediate medical care with worsening or with any concerns. Sven Resendez MD Patient data External records reviewed:: [facility] previous records (Per chart review, patient was seen here on 12/12/24 for migraine.) Clinical information provided by:: patient Social determinants that could affect healthcare access:: none Patient has the following chronic illnesses:: none How is presenting disease/condition affected by chronic disease/condition?: no chronic disease Evaluation data The following diagnostics were reviewed and interpreted by me:: lab results, radiology exam(s) and EKG tracing(s) (My interpretation of the EKG is: Sinus rhythm (69 bpm) with nonspecific ST-T changes. Sven Resendez MD) Lab and/or radiology exams considered but not ordered:: none Interpretation Summary: I reviewed all diagnostic test results. My interpretation of the EKG is sinus rhythm with nonspecific ST-T changes. My interpretation of the chest x-ray is NAD. My review of the CT head report is NAD. Blood tests are unremarkable. COVID/Influenza negative. Medications / Prescriptions Medications or Prescriptions considered but not ordered:: none Medication administrations:: Medication Administration History Discontinued Medications Acetaminophen/Codeine Phosphate (Acetaminophen W/Cod 300-30 Tablet) 2 tab PO X1 ONE Stop: 05/13/25 19:15 Last Admin: 05/13/25 21:08 Dose: 2 tab Documented By: Tylenol with Codeine Consultations Consultation(s) initiated? (list below): No Diagnosis Differential diagnosis headache: migraine, tension headache, subarachnoid hemorrhage, headache and other (chest pain, dehydration, musculoskeletal pain) Most likely diagnosis given after review of the tests above:: Headache Chest pain Admission Indicated Admission indicated?: not indicated Explain why admission is indicated or not indicated:: With significant improvement and no condition needing emergent intervention, there was no indication for admission. Admission Request Was there a request for admission?: No Disposition Plan Disposition Plan: Discharge Discharge Attestation Discharge Attestation: The patient and all family members were given an opportunity to ask questions and understood the discharge instructions. Discharge instructions specifically effects, indications for sooner follow up or return to the emergency department, and the expected course of current diagnosis. Patient condition: Stable Discharge Plan Plan Patient Disposition: HOME (Self Care) Prescriptions/Referrals Prescriptions/Med Rec: New acetaminophen-codeine 300-30 mg tablet 2 tab PO Q8H MDD 6 PRN (Reason: pain) Qty: 20 0RF No Action omeprazole 40 mg capsule,delayed release(DR/EC) 40 mg PO QDAY metoclopramide HCl [Reglan] 10 mg tablet 10 mg PO Q6H PRN (Reason: nausea and vomiting) Qty: 20 0RF hydrocortisone acetate [Hemmorex-HC] 25 mg suppository 25 mg MN BID Qty: 12 0RF meloxicam 7.5 mg tablet 7.5 mg PO QDAY Qty: 10 0RF meclizine 25 mg tablet 25 mg PO BID PRN (Reason: dizziness) Qty: 20 0RF rizatriptan [Maxalt-[employer] SUPERVISOR] 10 mg tablet,disintegrating 10 mg PO Q2H PRN (Reason: migraine headache) Qty: 20 0RF Rx Instructions: do not exceed 3 doses per 24 hrs famotidine 20 mg tablet 20 mg PO QDAY Qty: 30 0RF ibuprofen 800 mg tablet 800 mg PO TID PRN (Reason: pain) Qty: 30 0RF cyclobenzaprine 10 mg tablet 10 mg PO TID PRN (Reason: muscle spasm) Qty: 30 0RF meloxicam 15 mg tablet 15 mg PO QDAY Qty: 10 0RF Rx Instructions: Do not take with ibuprofen/Motrin or Naprosyn/Aleve. meloxicam 15 mg tablet 15 mg PO QDAY Qty: 14 0RF Referrals: Deny Farnsworth MD [Primary Care Provider, Family Practice] - In 1 week Problem List Clinical Impression: Headache, Chest pain Patient/Caregiver Discharge Instructions Discharge Activity: activity as tolerated Education Materials: ED Chest Pain, Uncertain Cause, ED Headache, Tension Additional Instructions: Discharge Instructions from Dr. Resendez printed for you: 1. After extensive evaluation, the cause of your headache and chest pain was not determined. But there is no immediately life-threatening condition. Such as stroke or brain tumor or heart attack. 2. Tylenol with codeine for severe pain. 3. See a private doctor outside the ER on 05/16/2025 for recheck. Ask for help finding the cause of your headache and chest pain. To make sure there is no serious underlying heart condition, ask to help you get more tests for your heart that cannot be done here in the ER. Such as Holter Monitor (cardiac monitoring at home from a day to even a month), heart stress test (on treadmill or with medication), echocardiogram (imaging of your heart structures), heart catherization (checking for blockages in your heart arteries), and a referral to see a Sql Server Consultant. Ask to consider MRI imaging of the brain and referral to see neurologist. 4. Seek immediate medical care with worsening or with any concerns. Instrucciones de david del Dr. Resendez, impresas para usted: 1. Tras albaro evaluaci?n exhaustiva, no se determin? la causa de [place] dolor de hi y de pecho. Sin embargo, no existe albaro afecci?n que ponga en peligro [place] bhanu de inmediato. [place] un derrame cerebral, un tumor cerebral o un ataque card?aco. 2. Tylenol con code?na para el dolor intenso. 3. Consulte con un m?dico privado fuera de urgencias el 01/18/2025 para albaro nueva evaluaci?n. Solicite ayuda para determinar la causa de [place] dolor de hi y de pecho. Para asegurarse de que no haya albaro afecci?n card?kelli subyacente grave, solicite ayuda para realizar m?s pruebas card?acas que no se pueden realizar en urgencias. Renée un monitor Holter (monitorizaci?n card?kelli en casa desde un d?a hasta un mes), albaro prueba de esfuerzo card?aco (en cinta caminadora o con medicaci?n), un ecocardiograma (im?genes de las estructuras card?acas), un cateterismo card?aco (para detectar obstrucciones en las arterias card?acas) y albaro derivaci?n a un cardi?logo. Solicite que se considere albaro resonancia magn?angela cerebral y albaro derivaci?n a un neur?logo. 4. Busque atenci?n m?dica inmediata si empeora o tiene alguna inquietud. Print Language: Bangladeshi Stand Alone Forms: Roselyn Award Info., Patient Portal Info Letter
--- NOTE | 2025-05-13 19:14 | XR_ITS ---
Examination: PA chest single view Technique: Upright PA chest single view Date and time: May 13, 2025 1922 hrs., Comparison July 06, 2023 Indications: Chest pain headaches beginning 2 days ago. Findings: Mild prominence left ventricle. No pneumonia or pulmonary edema. The osseous structures are intact Impression: No pneumonia or pulmonary edema.
[2025-05-13 19:53] LABS: Basophils # (Auto) 0.0 Thou/mm3 (0.0-0.2); Basophils % (Auto) 1 % (0-2.5); Eosinophils # (Auto) 0.2 Thou/mm3 (0.0-0.5); Eosinophils % (Auto) 2 % (0-10); Hematocrit 37.6 % (36.0-46.0); Hemoglobin 12.3 g/dL (12.0-16.0); Immature Granulocytes Auto 0.02 Thou/mm3 (0.00-0.00); Lymphocytes # (Auto) 3.0 Thou/mm3 (1.0-4.8); Lymphocytes % (Auto) 38 % (10-50); Mean Corpuscular HGB Conc 32.7 g/dl (31.0-37.0); Mean Corpuscular Hemoglobin 29.6 pg (25.0-35.0); Mean Corpuscular Volume 91 fL (80-100); Monocytes # (Auto) 0.6 Thou/mm3 (0.0-0.8); Monocytes % (Auto) 7 % (0-12); Neutrophils # (Auto) 4.2 Thou/mm3 (1.8-7.7); Neutrophils % (Auto) 52 % (37-80); Nucleated Red Blood Cell # 0.00 Thou/mm3 (0.00-0.00); Nucleated Red Blood Cell % 0 /100 WBC (0); Platelet Count 291 Thou/mm3 (140-440); RDW Standard Deviation 44.3 fL (36.4-46.3); Red Blood Count 4.15 Miln/mm3 (4.00-5.20); White Blood Count 8.0 Thou/mm3 (3.6-11.0)
[2025-05-13 20:02] VITALS: BP 137/80; PULSE 62; RESP 16; TEMP 36.8; O2SAT 100
[2025-05-13 20:16] LABS: Anion Gap 9 (7-16); BUN/Creatinine Ratio 16 Ratio (12-20); Blood Urea Nitrogen 11 mg/dL (9-23); Calcium 9.2 mg/dL (8.3-10.6); Carbon Dioxide 25.1 mMol/L (20.0-31.0); Chloride 105 mMol/L (98-107); Creatinine (Component) 0.7 mg/dL (0.6-1.3); Estimated Creatinine Clearance 107.1 mL/min (>60); Glucose 98 mg/dL (74-106); Magnesium 2.2 mg/dL (1.6-2.6); Osmolality,Calculated 276 (275-295); Potassium 3.5 mMol/L (3.4-5.1); Sodium 139 mMol/L (136-145); Thyroid Stimulating Hormone 2.11 uIU/mL (0.55-4.78); Troponin I < 0.002 ng/mL (0.0-0.045); eGFR > 60 See Note
--- NOTE | 2025-05-13 20:38 | XR_ITS ---
Examination: CT brain head without contrast. 2-D sagittal coronal reconstructions Date and time of exam:May 13, 2025, 2051 hrs., Comparison December 12, 2024 Indications: Onset generalized weakness today CTDI: vol (mGy):50 DLP: (mGycm):898 Technique: Multiple CT axial sections of the brain have been obtained, 5 mm slice thickness. Contrast has not been administered. 2-D sagittal, coronal reconstructions have been obtained Low dose protocols were performed. One or more of the following dose reduction techniques were used; automated exposure control, adjustment of the mA and/or KV according to patient size, use of iterative reconstruction technique. Findings: No significant ventricular enlargement. Intra-axial or extra-axial hemorrhage density is not seen. No mass effect or midline shift Basal cisterns are not remarkable. Fourth ventricle is midline. Cranial vault intact. Impression: Negative for acute hemorrhage, mass effect or midline shift Advise clinical correlation and follow-up accordingly
[2025-05-13] MEDS: ACETAMINOPHEN w/COD 300-30 TABLET 2 TAB PO (21:08)
[2025-05-13 21:33] VITALS: RESP 16
== END 2025-05-13 21:33 | disposition home or self-care (01) ==
PROVIDERS: Emergency Provider Emergency Medicine; PCP Family Medicine
DX: R51.9 Headache, unspecified (principal); R07.9 Chest pain, unspecified; R53.1 Weakness
CPT/HCPCS: 36415; 70450; 71045; 80048; 83735; 84443; 84484; 85025; 87400; 87811; 93005; 99284; A9270

== ENCOUNTER → 2025-06-23 | Outpatient (CLI) | payer MEDICAID, SELFPAY ==
--- NOTE | 2025-06-23 14:58 | XR_ITS ---
Examination: Shoulder, left, 3 views Technique: Shoulder AP internal rotation, AP external rotation, Y view shoulder, 3 views Exam date and time : June 23, 2025: 1508 hours INDICATIONS: Left shoulder pain beginning 2 weeks ago. FINDINGS: Mild narrowing glenohumeral joint No shoulder fracture or dislocation No calcific tendinitis IMPRESSION: Mild narrowing glenohumeral joint
== END | disposition home or self-care (01) ==
LOC: CDIM 14:52
PROVIDERS: PCP Family Medicine; Referring Provider Family Medicine; Visit Provider Family Medicine
DX: M25.812 Other specified joint disorders, left shoulder (principal)
CPT/HCPCS: 73030